=== PATIENT | male | born 1970 | race Caucasian/White ===

== ENCOUNTER 2016-08-16 11:22 | Emergency (ER) | payer BC ==
--- NOTE | 2016-08-16 13:02 | Emergency Department Record ---
History of Present Illness - General Chief complaint: Pain Stated complaint: RIB PAIN/INJURY Time Seen by Provider: 08/16/16 13:02 Source: Patient Mode of Arrival: Ambulatory Limitations: No limitations - History of Present Illness Initial comments: The patient is here due to R rib pain. He slipped and landed on a pipe last evening and injured his R ribs. It has been painful since. The pain is much worse with any movement and twisting. He denies any L CP, SOB or AP. MD Complaint: Other Onset/Timin -: Days(s) Location: Right, Other History of Same: No Severity scale (1-10): 8 Quality: Sharp Consistency: Constant Improves with: Nothing Worsens with: Palpation Associated Symptoms: Denies other symptoms - Related Data Previous Rx's Medication Instructions Recorded Naproxen [Naprosyn] 500 mg PO BID #14 tablet. 08/16/16 Allergies Allergy/AdvReac Type Severity Reaction Status Date / Time No Known Drug Allergies Allergy Verified 08/16/16 12:53 Travel Screening - Travel/Exposure Within Last 30 Days Have you traveled within the last 30 days?: No - Travel/Exposure Within Last Year Have you traveled outside the [place] in the last year?: No - Additonal Travel Details Have you been exposed to anyone with a communicable illness?: No - Travel Symptoms Symptom Screening: None Review of Systems Constitutional: Denies: Chills, Fever Eyes: Denies: Eye discharge ENT: Denies: Congestion, Throat pain Respiratory: Denies: Cough, Dyspnea Past Medical History - SOCIAL HISTORY Smoking Status: Never smoker Alcohol Use: Occassional Drug Use: None - RESPIRATORY Hx Respiratory Disorders: No - CARDIOVASCULAR Hx Cardio Disorders: No - NEURO Hx Neuro Disorders: No - GI Hx GI Disorders: No - Hx Genitourinary Disorders: No - ENDOCRINE Hx Endocrine Disorders: No - MUSCULOSKELETAL Hx Musculoskeletal Disorders: No - PSYCH Hx Psych Problems: No - HEMATOLOGY/ONCOLOGY Hx Hematology/Oncology Disorders: No Family Medical History Any Significant Family History?: Yes Family Hx Comment (NOT TO BE USED IN PLACE OF ITEMS BELOW): mom scleraderma, dad anurysm Hx Cancer: Brother/Sister Physical Exam - General General Appearance: Alert, Oriented x3, Cooperative, No acute distress - Head Head exam: Atraumatic, Normocephalic, Normal inspection - Eye Eye exam: Normal appearance, PERRL - Neck Neck exam: Normal inspection, Full ROM. negative: Tenderness - Respiratory Respiratory exam: Normal lung sounds bilaterally, Chest wall tenderness (The pain is easily reproducible with palpation to the R anterior mid to lower ribs. There is no crepitance or step off. There is no swelling, bruising, or edema noted.). negative: Decreased breath sounds, Respiratory distress, Rhonchi, Stridor - Cardiovascular Cardiovascular Exam: Regular rate, Normal rhythm, Normal heart sounds - GI/Abdominal GI/Abdominal exam: Soft, Normal bowel sounds. negative: Guarding, Rigid, Tenderness Course Vital Signs 08/16/16 12:53 Temperature 98.3 F Pulse Rate 59 L Respiratory 18 Rate Blood Pressure 123/83 Pulse Ox 97 - Reevaluation(s) Reevaluation #1: The patient is doing much better at this time. His pain is improved and he is ready for home. I did explain the normal xrays with the patient. 08/16/16 14:18 Medical Decision Making - Data Complexity MDM Data: X-Ray Ordered and/or Reviewed - Radiology Data Radiology results: Report reviewed (R ribs: Neg.) Disposition Disposition: Discharge Clinical Impression: Contusion of rib on right side Qualifiers: Encounter type: initial encounter Qualified Code(s): S20.211A - Contusion of right front wall of thorax, initial encounter Disposition: Home, Self-Care Condition: (1) Good Instructions: Contusion in Adults (ED) Additional Instructions: Please rest with no lifting. Please take the Naprosyn for pain. Please see your PCP if not better in 3 days. Return to the ER for any increased pain, fever, or trouble breathing. Prescriptions: Naproxen [Naprosyn] 500 mg PO BID #14 tablet.dr Forms: Patient Portal Access Time of Disposition: 14:21
[2016-08-16] MEDS: KETOROLAC 30 MG/ML VIAL IM ONE (13:29)
--- NOTE | 2016-08-21 09:17 | RADIOLOGY REPORT ---
EXAM: RIGHT RIBS WITH PA CHEST HISTORY: RIGHT RIB PAIN ESPECIALLY NEAR THE T6 AND T7 VERTEBRA. PAIN POST TRAUMA. TECHNIQUE: AP and oblique views of the right ribs were obtained as well as an upright PA view of the chest. Comparison: None. FINDINGS: There is normal bone mineralization. No convincing acute fracture, dislocation, or destructive bone lesion is seen. There are mild degenerative changes within the visualized spine and right shoulder girdle. The cardiomediastinal silhouette is normal in size and configuration. The pulmonary vasculature is nondilated. The lungs and pleural spaces are clear. IMPRESSION: 1. NO ACUTE RIGHT RIB FRACTURE IDENTIFIED. 2. NO EVIDENCE OF ACUTE CARDIOPULMONARY DISEASE. JOB NUMBER: [id number] [facility]
== END 2016-08-16 14:50 | disposition home or self-care (01) ==
LOC: ER 11:22
DX: S20.211A Contusion of right front wall of thorax, initial encounter (principal); W18.09XA Striking against other object with subsequent fall, initial encounter
CPT/HCPCS: 99283; 96372; 99284; 71101; J1885